=== PATIENT | male | born 1955 ===

== ENCOUNTER 2017-03-31 07:46 | Emergency (ER) | payer MEDICAID ==
--- NOTE | 2017-03-31 09:12 | ERNOTE ---
Medical Problem HPI - Narrative Date of Service: 03/31/17 - General Chief Complaint: General Assessment Time Seen by Provider: 03/31/17 08:57 Source: patient Exam Limitations: no limitations - Immun/Allergies/Home Medications Immunizations: IMMUNIZATION HX Immunizations Up to Date Yes History of Influenza Vaccine No Hx Pneumococcal Vaccination No Allergies/Adverse Reactions: Allergies No Known Allergies Allergy (Unverified 03/31/17 08:05) Home Medications: HOME MEDICATIONS Amox Tr/Potassium Clavulanate [Augmentin 875-125 Tablet] 875 mg PO Q12H #20 tab 03/31/17 [Last Taken Unknown] metroNIDAZOLE [Flagyl] 500 mg PO Q8H #30 tablet 03/31/17 [Last Taken Unknown] - History of Present History Narrative: 61 yo WM fell [place] home. Reports it happened yesterday about 4 PM. Seen in [place] ED and was told he broke his left shoulder. Was told to follow up with ortho but says he was not given details. Reports he was having abdominal and neck pain yesterday but cannot recall any tests or evaluation being done. Says pain increased over the night. Developed nausea and vomiting early this AM. Placed in hard collar. Review of Systems - Review of Systems Constitutional: Present: no symptoms reported EYE: Present: no symptoms reported ENT: Present: no symptoms reported Respiratory: Present: other - diffuse pain with inspiration Cardiology: Present: no symptoms reported Gastrointestinal/Abdominal: Present: abdominal pain - increased in LLQ Neurological: Present: no symptoms reported - Patient's Past Medical History Patient History - Medical: No pertinent hx Patient History - Cardiac/Respiratory: Other Patient History - Cancer: No Hx of Cancer Patient History - Surgical Procedures: Other Patient History - Other: None - Social History Living Situations: spouse Abuse History: No History of abuse Psych History: No pertinent hx Smoking Status: Current every day smoker Have you smoked in the past 12 months: Yes Do you dip or chew tobacco: No Alcohol Use: occasionally Drug Use: none - Immunizations Immunizations Up to Date: Yes Hx Pneumococcal Vaccination: No History of Influenza Vaccine: No Physical Exam - Physical Exam General Appearance: Present: wd/wn, alert, mild distress Head Exam: Present: normal inspection, no evidence of injury Eye Exam: PERRL: bilateral, EOMI: bilateral Ears, Nose, Throat: Present: normal ENT inspection Neck: Present: tender lateral - left, tender posterior midline Respiratory: Present: no respiratory distress, normal breath sounds, chest tenderness - posteriorly Cardiovascular/Chest: Present: regular rate, rhythm, no murmur Gastrointestinal/Abdominal: Present: tenderness - lower Q's but most intense LLQ. 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 - Vital Signs Patient's Vital Signs:: I have reviewed the patient's vital signs. Vital Signs: Vital Signs 03/31/17 07:58 Temperature 36.9 C Pulse Rate 76 Respiratory 22 H Rate Blood Pressure 165/98 O2 Sat by Pulse 93 Oximetry - CT/Ultrasound CT/Ultrasound Narrative: reviewed CT scans. - Progress/Reassessment Chief Complaint: General Assessment Plan - Plan Plan: Findings discussed wit patient. Departure Clinical Impression: Blunt trauma, Humerus fracture, Diverticulitis large intestine - Departure Disposition: Home self-care Condition: Good Instructions: Blunt Abdominal Trauma, Blunt Chest Trauma, Diverticulitis, Easy- to-Read Additional Instructions: take hydorcodone alternating with ibuprofen 600 mg every 3 hours Take antibiotics as instructed Follow up with PCP Return to ED if condition worsens Referrals: Isreal Mcgraw MD [Primary Care Provider] - Prescriptions: Amox Tr/Potassium Clavulanate [Augmentin 875-125 Tablet] 875 mg PO Q12H #20 tab metroNIDAZOLE [Flagyl] 500 mg PO Q8H #30 tablet
[2017-03-31] MEDS ORDERED: fentaNYL CITRATE/PF 50 MCG/ML AMPUL IV ONE (09:13)
[2017-03-31] MEDS ORDERED: PROMETHAZINE HCL 12.5 MG in DEXTROSE 5 % IN WATER 50 ML IV ONE ×2 (09:13)
[2017-03-31] MEDS ORDERED: fentaNYL CITRATE/PF 50 MCG/ML AMPUL ONE (09:19)
[2017-03-31 09:27] LABS: Hematocrit 39.2 % (42.0-52.0); Hemoglobin 13.3 gm/dL (13.5-18.0); Mean Cell Volume 84.7 fl (78-100); Mean Corpuscular Hemoglobin 28.7 pg (27-31); Mean Corpuscular Hgb Conc 33.9 g/dl (32-36); Mean Platelet Volume 8.4 fl (6.0-9.5); Neutrophil # 9.4 K/mm3 (1.3-6.0); Neutrophil % 72.1 % (42-75.0); Platelet Count 355 K/mm3 (150-450); Red Blood Count 4.63 M/mm3 (4.7-6.0); Red Cell Distribution Width 16.1 % (11.5-14.0)
[2017-03-31 09:34] LABS: Urine Bilirubin Negative (NEGATIVE); Urine Blood Negative /ul (NEGATIVE); Urine Ketone Negative (NEGATIVE); Urine Nitrite Negative (NEGATIVE); Urine Protein Negative (NEGATIVE); Urine Specific Gravity 1.015 SP.GR. (1.005-1.030); Urine Urobilinogen Normal (NORMAL)
[2017-03-31] MEDS ORDERED: DIATRIZOATE MEGLUMINE, SODIUM 30 ML BTL ONE (09:35)
[2017-03-31 09:39] LABS: Albumin * 4.1 gm/dl (3.4-5.0); Anion Gap 12.8 mmol/L (6.8-13.8); BUN/Creatinine Ratio 17.3 (9.0-21.6); Bilirubin, Total 0.5 mg/dL (0.0-1.1); Ca. Corrected For Albumin 8.5 mg/dL (8.4-10.2); Calcium * 8.9 mg/dL (7.9-10.9); Carbon Dioxide 26.9 mmol/L (24-32.6); Potassium 4.7 mmol/L (3.4-4.6); Total Protein 7.4 gm/dL (6.2-8.2)
[2017-03-31 09:43] LABS: Urine Appearance Clear; Urine Color Yellow
[2017-03-31 09:44] LABS: Urine Bacteria None Seen; Urine RBC None Seen /hpf (0-5); Urine WBC None Seen /hpf (0-5)
[2017-03-31 11:28] VITALS: BP 142/93
== END 2017-03-31 11:29 | disposition home or self-care (01) ==
LOC: ER 07:46
DX: T14.90XD Injury, unspecified, subsequent encounter (principal); W01.0XXD Fall on same level from slipping, tripping and stumbling without subsequent striking against object, subsequent encounter; M84.422D Pathological fracture, left humerus, subsequent encounter for fracture with routine healing; K57.32 Diverticulitis of large intestine without perforation or abscess without bleeding; F17.200 Nicotine dependence, unspecified, uncomplicated